=== PATIENT | female | born 1970 | race Hispanic/Latino ===

== ENCOUNTER 2017-04-25 17:41 | Emergency (ER) | payer MEDICAID ==
[2017-04-25] MEDS ORDERED: ASPIRIN PO ONE (18:21)
[2017-04-25 18:46] LABS: Basophils # (Auto) 0.1 K/mm3 (0.0-0.1); Basophils % (Auto) 1.3 % (0.0-1.8); Eosinophils # (Auto) 0.6 K/mm3 (0.0-0.4); Eosinophils % (Auto) 6.1 % (0.0-4.3); Hematocrit 40.5 % (30.3-42.9); Hemoglobin 13.7 gm/dl (10.1-14.3); Lymphocytes % (Auto) 31.3 % (13.4-35.0); Mean Corpuscular HGB Conc 34 % (30-34); Mean Corpuscular Hemoglobin 31 pg (28-32); Mean Corpuscular Volume 90 fl (79-97); Monocytes # (Auto) 0.9 K/mm3 (0.0-0.8); Monocytes % (Auto) 9.1 % (0.0-7.3); Platelet Count 331 K/mm3 (140-440); Red Blood Count 4.51 M/mm3 (3.65-5.03); Red Cell Distribution Width 13.1 % (13.2-15.2)
[2017-04-25 18:56] LABS: BUN/Creatinine Ratio 13; Blood Urea Nitrogen 10 mg/dL (7-17); Calcium 9.5 mg/dL (8.4-10.2); Hemolysis Index 9
[2017-04-25 22:26] VITALS: BP 120/76
[2017-04-25] MEDS ORDERED: TORADOL IV ONE (22:27)
[2017-04-25] MEDS ORDERED: SUBLIMAZE IV ONE ×2 (22:27→23:00)
--- NOTE | 2017-04-25 22:32 | Emergency Department Report ---
HPI - General Chief Complaint: Chest Pain Time Seen by Provider: 04/25/17 22:09 - HPI HPI: The patient is a 46-year-old female presents for evaluation of chest pain. The patient reports constant chest pain since 1 PM earlier today, greater than 8 hours prior to my evaluation. She states that his chest pain is been midsternal in location, sharp and tightness in quality, 9/10 in severity, and is exacerbated with movement. The patient denies fever, neck pain, parasthesias , dyspnea, cough, hemoptysis, palpitations, dizziness, syncope, unilateral leg swelling, calf muscle pain. Patient also denies cocaine or other stimulant use , history of GA or stent placement. ED Past Medical Hx - Past Medical History Previous Medical History?: Yes Additional medical history: Blood clotting disorder - Surgical History Past Surgical History?: Yes Hx Open Heart Surgery: Yes ("remove blood clot, and mitral valve replacement") Additional Surgical History: R. arm surgery to remove blood clot - Social History Smoking Status: Never Smoker - Medications Home Medications: Home Medications Medication Instructions Recorded Confirmed Last Taken Type Cyclobenzaprine HCl [Flexeril 5 MG 5 mg PO Q8HR PRN #10 tab 04/26/17 Unknown Rx TAB] Famotidine [Pepcid] 20 mg PO BID #20 tablet 04/26/17 Unknown Rx ED Review of Systems ROS: Stated complaint: CP/NUMBNESS ON LEFT SIDE Other details as noted in HPI Constitutional: denies: fever ENT: denies: throat or neck pain Respiratory: denies: cough, shortness of breath Cardiovascular: reports chest pain Endocrine: denies unexplained weight loss or gain Gastrointestinal: denies: abdominal pain, nausea Genitourinary: denies: dysuria Musculoskeletal: denies: leg swelling Skin: denies: rash Neurological: denies: headache Hematological/Lymphatic: denies: easy bleeding or easy bruising Psych: denies sadness or hopelessness Physical Exam - Physical Exam Vital Signs: Vital Signs 04/25/17 04/25/17 18:03 22:25 Temperature 98.1 F 98.6 F Pulse Rate 74 63 Respiratory 20 16 Rate Blood Pressure 144/97 Blood Pressure 120/76 [Left] O2 Sat by Pulse 97 96 Oximetry Physical Exam: General: well-nourished, well-developed, no acute distress Head: Normocephalic, atraumatic Eyes: normal sclera ENT: Mucous membranes are pink and moist Neck: trachea midline, neck supple, No neck stiffness, no cervical adenopathy Respiratory: Breath sounds equal bilaterally, no wheezing, rales, or rhonchi Cardio: S1 and S2 present, no murmurs, rubs, gallops, capillary refill is brisk Abdomen: Normoactive bowel sounds, soft abdomen, no rigidity, no guarding or rebound tenderness Musc: No pitting edema Skin: No rash Neuro: no facial drooping, normal speech Psych: Normal affect ED Course Vital Signs 04/25/17 04/25/17 18:03 22:25 Temperature 98.1 F 98.6 F Pulse Rate 74 63 Respiratory 20 16 Rate Blood Pressure 144/97 Blood Pressure 120/76 [Left] O2 Sat by Pulse 97 96 Oximetry ED Medical Decision Making - Lab Data Result diagrams: 04/25/17 18:24 04/25/17 18:24 - Medical Decision Making The patient was seen and examined by myself. The patient is placed on a asbestos microscopist and continuous pulse ox. On initial evaluation, the patient was found to be in no distress. EKG was negative for findings suggestive of acute cardiac infarct. Labs and imaging are obtained. The patient given IV pain medicine. Chest x-ray is negative for pneumothorax, focal consolidation, pulmonary vascular congestion, pleural effusion, or other obvious acute cardiopulmonary disease process. Lab results were non-concerning including levels of troponin, WBC, hemoglobin, hematocrit, electrolytes, renal function. CTA of the chest is negative for pulmonary embolism, aortic dissection, pericardial disease, or other acute emergent intrathoracic disease process. The patient was reevaluated and reported that their symptoms were markedly improved. As the patient has a ONUR risk score less than 2, and a well's score less than 2, the patient is at low risk of ACS or pulmonary emboli etiology of their symptoms. The patient is stable for discharge with outpatient follow-up. The patient is given follow-up and return instructions. The patient expressed understanding and agreed with the plan. The patient is discharged in stable condition. Critical care attestation.: If time is entered above; I have spent that time in minutes in the direct care of this critically ill patient, excluding procedure time. ED Disposition Clinical Impression: Acute chest pain Disposition: DC-01 TO HOME OR SELFCARE Is pt being admited?: No Does the pt Need Aspirin: No Condition: Stable Instructions: Chest Pain (ED), Costochondritis (ED) Prescriptions: Cyclobenzaprine HCl [Flexeril 5 MG TAB] 5 mg PO Q8HR PRN #10 tab PRN Reason: Pain Famotidine [Pepcid] 20 mg PO BID #20 tablet Referrals: SHAJI CUNNINGHAM MD [Primary Care Provider] - 3-5 Days Time of Disposition: 00:52
[2017-04-25] MEDS ORDERED: ZOFRAN IV ONE (23:19)
--- NOTE | 2017-04-25 23:45 | XRay Report ---
FINAL REPORT PROCEDURE: XR CHEST ROUTINE 2V TECHNIQUE: PA and lateral chest radiographs were obtained. CPT 02305 HISTORY: dyspnea COMPARISON: No prior studies are available for comparison. FINDINGS: Heart: Normal. Mediastinum/Vessels: Normal. Lungs/Pleural space: Normal. Bony thorax: No acute osseous abnormality. Other: IMPRESSION: Normal examination.
--- NOTE | 2017-04-26 00:29 | Cat Scan Report ---
FINAL REPORT PROCEDURE: CT ANGIO CHEST TECHNIQUE: Computerized axial tomographic angiography of the chest and pulmonary arteries was performed after the IV injection of iodinated nonionic contrast. The image data was postprocessed using maximum intensity projection (MIP) and 2-dimensional multiplanar reformatted (MPR) techniques. The examination is specifically tailored to the evaluation of the pulmonary arteries per clinical request. HISTORY: Short of breath 786.09, chest pain 786.50, chest pain COMPARISON: No prior studies are available for comparison. FINDINGS: Heart and pericardium: Normal. Thoracic aorta: Thoracic aorta is normal in caliber. There is no aneurysm or dissection.. Pulmonary vasculature: Normal. No pulmonary emboli. Lymph nodes: No enlarged thoracic lymph nodes. Lungs: Normal. Pleural space: No effusion, thickening, or pneumothorax. Musculoskeletal structures: No significant abnormality. Upper abdominal structures: No significant abnormality. IMPRESSION: Normal Examination.
== END 2017-04-26 01:12 | disposition home or self-care (01) ==
LOC: ED 17:41
DX: R07.89 Other chest pain (principal)
CPT/HCPCS: 36415; 71046; 71275; 80048; 84484; 85025; 93005; 93010; 96374; 96375; 99285; J1885; J3010; Q9967

== ENCOUNTER 2018-08-02 16:55 | Emergency (ER) | payer MEDICARE ==
--- NOTE | 2018-08-02 17:53 | Emergency Department Report ---
Blank Doc - Documentation Documentation: pt states that her blood sugar was 205 pt has nausea PMHx of DM +V/D states that she has a foul odor to her urine PMHx HTN, factor V +smoker non drinker no drug use
[2018-08-02 18:57] LABS: Color,Urine Yellow (Yellow)
[2018-08-02 18:58] LABS: Bacteria,Urine 1+ /HPF (Negative); Bilirubin,Urine NEG (Negative); Blood,Urine NEG (Negative); Mucus,Urine FEW /HPF; Protein,Urine <15 mg/dL mg/dL (Negative); Urobilinogen,Urine < 2.0 mg/dL (<2.0)
[2018-08-02 19:03] LABS: Basophils # (Auto) 0.1 K/mm3 (0.0-0.1); Basophils % (Auto) 0.6 % (0.0-1.8); Eosinophils # (Auto) 0.3 K/mm3 (0.0-0.4); Eosinophils % (Auto) 3.2 % (0.0-4.3); Hematocrit 39.5 % (30.3-42.9); Hemoglobin 13.8 gm/dl (10.1-14.3); Lymphocytes # (Auto) 3.2 K/mm3 (1.2-5.4); Lymphocytes % (Auto) 35.3 % (13.4-35.0); Mean Corpuscular HGB Conc 35 % (30-34); Mean Corpuscular Volume 92 fl (79-97); Monocytes # (Auto) 0.8 K/mm3 (0.0-0.8); Platelet Count 273 K/mm3 (140-440)
[2018-08-02 19:20] LABS: BUN/Creatinine Ratio 13; Blood Urea Nitrogen 9 mg/dL (7-17); Calcium 9.2 mg/dL (8.4-10.2); Hemolysis Index 3
[2018-08-02] MEDS ORDERED: ZOFRAN IV ONE (19:49)
[2018-08-02] MEDS ORDERED: KCL 10MEQ/100ML 10 MEQ/100 ML BAG IV ONE ×2 (19:49→19:55)
[2018-08-02] MEDS ORDERED: K-DUR PO ONE (19:49)
[2018-08-02] MEDS ORDERED: NACL 0.9% 500 ML 500 ML IV ONE (19:49)
--- NOTE | 2018-08-02 21:03 | Emergency Department Report ---
ED General Adult HPI - General Chief complaint: Hyperglycemia Stated complaint: DKA/SUGAR HIGH Time Seen by Provider: 08/02/18 17:51 Source: patient Mode of arrival: Ambulatory Limitations: No Limitations - History of Present Illness Initial comments: pt states that her blood sugar was 205 pt has nausea PMHx of DM +V/D states that she has a foul odor to her urine , tp denies cp no sob fever or chills, pt does endorse dizziness , lightheadedness with n/v , pt also endorses polypharmacy Onset/Timin -: days(s), week(s) Location: head, abdomen Radiation: non-radiation Severity scale (0 -10): 7 Quality: other (dizziness nausea) Consistency: constant Improves with: none Worsens with: eating, movement Associated Symptoms: malaise, nausea/vomiting Treatments Prior to Arrival: none - Related Data Previous Rx's Medication Instructions Recorded Last Taken Type Cyclobenzaprine HCl [Flexeril 5 MG 5 mg PO Q8HR PRN #10 tab 04/26/17 Unknown Rx TAB] Famotidine [Pepcid] 20 mg PO BID #20 tablet 04/26/17 Unknown Rx Ondansetron [Zofran Odt] 4 mg PO Q8HR PRN #12 tab.rapdis 08/03/18 Unknown Rx Potassium Chloride [K-Dur] 40 meq PO BID 3 Days #12 tab 08/03/18 Unknown Rx Allergies Allergy/AdvReac Type Severity Reaction Status Date / Time acetaminophen Allergy Unknown Verified 08/02/18 16:58 [From Darvocet-N] hydrocodone [From Vicodin] Allergy Unknown Verified 08/02/18 16:58 propoxyphene Allergy Unknown Verified 08/02/18 16:58 [From Darvocet-N] warfarin [From Coumadin] Allergy Unknown Verified 08/02/18 16:58 ED Review of Systems ROS: Stated complaint: DKA/SUGAR HIGH Other details as noted in HPI Constitutional: malaise. denies: chills, fever Eyes: denies: eye pain, eye discharge, vision change ENT: denies: ear pain, throat pain Respiratory: denies: cough, shortness of breath, wheezing Cardiovascular: denies: chest pain, palpitations Endocrine: no symptoms reported Gastrointestinal: abdominal pain, nausea, vomiting. denies: diarrhea, constipation Genitourinary: denies: urgency, dysuria, discharge Musculoskeletal: denies: back pain, joint swelling, arthralgia Skin: denies: rash, lesions Neurological: weakness. denies: headache, numbness, paresthesias, confusion, abnormal gait, vertigo Psychiatric: anxiety. denies: depression Hematological/Lymphatic: denies: easy bleeding, easy bruising ED Past Medical Hx - Past Medical History Hx CVA: Yes Hx Diabetes: Yes Hx Psychiatric Treatment: Yes (BiPolar) Additional medical history: Blood clotting disorder - Surgical History Hx Open Heart Surgery: Yes ("remove blood clot, and mitral valve replacement") Additional Surgical History: R. arm surgery to remove blood clot - Social History Smoking Status: Current Every Day Smoker Substance Use Type: None - Medications Home Medications: Home Medications Medication Instructions Recorded Confirmed Last Taken Type Cyclobenzaprine HCl [Flexeril 5 MG 5 mg PO Q8HR PRN #10 tab 04/26/17 Unknown Rx TAB] Famotidine [Pepcid] 20 mg PO BID #20 tablet 04/26/17 Unknown Rx Ondansetron [Zofran Odt] 4 mg PO Q8HR PRN #12 tab.rapdis 08/03/18 Unknown Rx Potassium Chloride [K-Dur] 40 meq PO BID 3 Days #12 tab 08/03/18 Unknown Rx ED Physical Exam - General Limitations: No Limitations General appearance: alert, in no apparent distress - Head Head exam: Present: atraumatic, normocephalic - Eye Eye exam: Present: normal appearance, PERRL, EOMI Pupils: Present: normal accommodation - ENT ENT exam: Present: mucous membranes moist - Neck Neck exam: Present: normal inspection, full ROM. Absent: tenderness, lymphadenopathy - Respiratory Respiratory exam: Present: normal lung sounds bilaterally. Absent: respiratory distress, wheezes, stridor, chest wall tenderness - Cardiovascular Cardiovascular Exam: Present: regular rate, normal rhythm, normal heart sounds. Absent: systolic murmur, diastolic murmur, rubs, gallop - GI/Abdominal GI/Abdominal exam: Present: soft, normal bowel sounds. Absent: distended, tenderness, guarding, rebound, rigid, bruit, hernia - Rectal Rectal exam: Present: deferred - Extremities Exam Extremities exam: Present: normal inspection, full ROM, normal capillary refill. Absent: tenderness, pedal edema, joint swelling - Back Exam Back exam: Present: normal inspection, full ROM. Absent: tenderness, CVA tenderness (R), CVA tenderness (L), muscle spasm, rash noted - Neurological Exam Neurological exam: Present: alert, oriented X3, CN II-XII intact, normal gait, reflexes normal. Absent: motor sensory deficit - Expanded Neurological Exam Expanded Patient oriented to: Present: person, place, time Speech: Present: fluid speech Cranial nerves: EOM's Intact: Normal, Gag Reflex: Normal, Tongue Deviation: Normal, Nystagmus: Normal, Facial Sensation: Normal Cerebellar function: Finger to Nose: Normal, Heel to Beal: Normal, Romberg: Normal Upper motor neuron: Fitz Neglect: Normal, Pronator Drift: Normal, Sensory Ext inction: Normal Motor strength exam: RUE: 5, LUE: 5, RLE: 5, LLE: 5 Best Eye Response (Kathryn): (4) open spontaneously Best Motor Response (Kathryn): (6) obeys commands Best Verbal Response (Gina): (5) oriented Gina Total: 15 - Psychiatric Psychiatric exam: Present: normal affect, normal mood, anxious - Skin Skin exam: Present: warm, dry, intact, normal color. Absent: rash ED Course Vital Signs 08/02/18 08/02/18 17:54 21:00 Temperature 98.5 F 98.6 F Pulse Rate 64 57 L Respiratory 18 20 Rate Blood Pressure 136/81 124/67 [Right] O2 Sat by Pulse 95 99 Oximetry ED Medical Decision Making - Lab Data Result diagrams: 08/02/18 18:52 08/02/18 23:03 Labs 08/02/18 08/02/18 08/02/18 17:58 18:39 18:52 WBC 9.1 RBC 4.30 Hgb 13.8 Hct 39.5 MCV 92 MCH 32 MCHC 35 H RDW 13.0 L Plt Count 273 Lymph % (Auto) 35.3 H [place] % (Auto) 9.0 H Eos % (Auto) 3.2 Baso % (Auto) 0.6 Lymph # 3.2 [place] # 0.8 Eos # 0.3 Baso # 0.1 Seg Neutrophils % 51.9 Seg Neutrophils # 4.7 Sodium Potassium Chloride Carbon Dioxide Anion Gap BUN Creatinine Estimated GFR BUN/Creatinine Ratio Glucose POC Glucose 153 H Calcium Troponin T Urine Color Yellow Urine Turbidity Clear Urine pH 5.0 Ur Specific [place] 1.017 Urine Protein <15 mg/dl Urine Glucose (UA) Neg Urine Ketones Neg Urine Blood Neg Urine Nitrite Neg Urine Bilirubin Neg Urine Urobilinogen < 2.0 Ur Leukocyte Esterase Neg Urine WBC (Auto) 1.0 Urine RBC (Auto) 1.0 U Epithel Cells (Auto) 2.0 Urine Bacteria (Auto) 1+ Urine Mucus Few 08/02/18 08/02/18 08/02/18 18:52 20:07 23:03 WBC RBC Hgb Hct MCV MCH MCHC RDW Plt Count Lymph % (Auto) [place] % (Auto) Eos % (Auto) Baso % (Auto) Lymph # [place] # Eos # Baso # Seg Neutrophils % Seg Neutrophils # Sodium 139 Potassium 2.8 L* 3.0 L Chloride 95.5 L Carbon Dioxide 28 Anion Gap 18 BUN 9 Creatinine 0.7 Estimated GFR > 60 BUN/Creatinine Ratio 13 Glucose 146 H POC Glucose Calcium 9.2 Troponin T < 0.010 Urine Color Urine Turbidity Urine pH Ur Specific [place] Urine Protein Urine Glucose (UA) Urine Ketones Urine Blood Urine Nitrite Urine Bilirubin Urine Urobilinogen Ur Leukocyte Esterase Urine WBC (Auto) Urine RBC (Auto) U Epithel Cells (Auto) Urine Bacteria (Auto) Urine Mucus - EKG Data EKG shows normal: sinus rhythm, axis, intervals, QRS complexes Rate: normal - EKG Data When compared to previous EKG there are: no significant change Interpretation: normal EKG, nonspecific ST-T wave eldon Ekg inter by ed attending NSR ST Elevated MT 08/03/18 00:23 08/03/18 00:24 - Radiology Data Radiology results: report reviewed, image reviewed - Medical Decision Making Potassium is trending dose and one IV dose patient will complete of 20 mEq IV and 40 meq, po x 2 doses, by mouth patient is now tolerating by mouth intake without nausea vomiting patient will be DC'd home in stable condition at this time EKG is normal sinus rhythm this is M atorvastatin gait with no dizziness or lightheadedness no chest pain no shortness of breath no diaphoresis no back pain no chest pain , pt dc'c to home with family member via pov pt will increase daily potassium x 3 days and continue to hydrate as directed, Critical care attestation.: If time is entered above; I have spent that time in minutes in the direct care of this critically ill patient, excluding procedure time. ED Disposition Clinical Impression: Hypokalemia Nausea and vomiting Qualifiers: Vomiting type: unspecified Vomiting Intractability: non-intractable Qualified Code(s): R11.2 - Nausea with vomiting, unspecified Disposition: - TO HOME OR SELFCARE Is pt being admited?: No Does the pt Need Aspirin: No Condition: Stable Instructions: Acute Nausea and Vomiting (ED), Hypokalemia (ED) Prescriptions: Potassium Chloride [K-Dur] 40 meq PO BID 3 Days #12 tab Ondansetron [Zofran Odt] 4 mg PO Q8HR PRN #12 tab.rapdis PRN Reason: Nausea And Vomiting Referrals: BRANDON KIMBLE MD [Primary Care Provider] - 2-3 Days Forms: Work/School Release Form(ED) Time of Disposition: 00:30
[2018-08-02 22:09] VITALS: BP 124/67
[2018-08-03] MEDS ORDERED: K-DUR PO ONE (00:22)
== END 2018-08-03 00:50 | disposition home or self-care (01) ==
LOC: ED 16:55
DX: E87.6 Hypokalemia (principal); R11.2 Nausea with vomiting, unspecified; E11.9 Type 2 diabetes mellitus without complications; F17.200 Nicotine dependence, unspecified, uncomplicated; Z88.8 Allergy status to other drugs, medicaments and biological substances; Z88.5 Allergy status to narcotic agent
CPT/HCPCS: 36415; 80048; 81001; 82962; 84132; 84484; 85025; 93005; 93010; 96365; 96366; 96375; 99284; J2405; J3480; J7040

== ENCOUNTER 2019-03-16 12:57 | Emergency (ER) | payer MEDICARE ==
[2019-03-16] MEDS ORDERED: IPRATROPIUM/ALBUTEROL SULFATE 3 ML AMPUL.NEB IH ONE (15:54)
--- NOTE | 2019-03-16 15:54 | Event Note ---
ED Screening Note ED Screening Note: friday having sore throat productive cough no fever no sick contacts PMHx DVT, DM on xaretlo allergy: coumadin, valium PSHx hysterectomy This initial assessment/diagnostic orders/clinical plan/treatment(s) is/are subject to change based on patients health status, clinical progression and re-assessment by fellow clinical providers in the ED. Further treatment and workup at subsequent clinical providers discretion. Patient/guardian urged not to elope from the ED as their condition may be serious if not clinically assessed and managed. Initial orders include: CXR, duo neb
--- NOTE | 2019-03-16 17:00 | XRay Report ---
CHEST 2 VIEWS INDICATION / CLINICAL INFORMATION: productive cough. COMPARISON: 2 views of the chest from 04/25/2017. FINDINGS: SUPPORT DEVICES: None. HEART / MEDIASTINUM: Sternotomy changes are again seen. The heart is normal in size. LUNGS / PLEURA: No significant pulmonary or pleural abnormality. No pneumothorax. ADDITIONAL FINDINGS: No significant additional findings. IMPRESSION: 1. No acute abnormality of the chest. Signer Name: James Case MD Signed: 03/16/2019 4:56 PM Workstation Name: [id number]
[2019-03-16] MEDS ORDERED: predniSONE 20 MG TAB PO ONE (17:03)
--- NOTE | 2019-03-16 17:08 | Emergency Department Report ---
Minor Respiratory - HPI Chief Complaint: Sore Throat Stated Complaint: SORE THROAT Time Seen by Provider: 03/16/19 15:50 Duration: 3 Days Pain Location: Chest Severity: mild Minor Respiratory: Yes Sore Throat, Yes Able to Tolerate Fluids, Yes Cough, No Rhinorrhea, No Ear Pain, No Sick Contacts, No Hemoptysis, No Chest Pain, No Shortness of Breath, No Fever Other History: 48 YO FEMALE COMES TO ER WITH SORE THROAT AND COUGH FOR 3 DAYS. NO FEVER OR CHILLS. SHE IS A CURRENT EVERY DAY SMOKER. NO CHEST PAIN. AMBULATORY TO ER. RX. ASA. COREG. MIRT? LISINOPRIL. XARELTO. KLONOPIN. HAS LOCAL PCP ED Review of Systems ROS: Stated complaint: SORE THROAT Other details as noted in HPI Comment: All other systems reviewed and negative ED Past Medical Hx - Past Medical History Previous Medical History?: Yes Hx CVA: Yes Hx Diabetes: Yes Hx Psychiatric Treatment: Yes (BiPolar) Additional medical history: Blood clotting disorder - Surgical History Past Surgical History?: Yes Hx Open Heart Surgery: Yes ("remove blood clot, and mitral valve replacement") Additional Surgical History: R. arm surgery to remove blood clot - Family History Family history: no significant - Social History Smoking Status: Current Every Day Smoker Substance Use Type: None - Medications Home Medications: Home Medications Medication Instructions Recorded Confirmed Last Taken Type ALBUTEROL Inhaler (OR & NICU) 2 puff IH QID PRN #1 inhalation 03/16/19 Unknown Rx [ProAir HFA Inhaler] Azithromycin [Zithromax Z-CARLOS] 250 mg PO DAILY #6 tablet 03/16/19 Unknown Rx methylPREDNISolone [Medrol 4MG 4 mg PO FS #1 tab.ds.pk 03/16/19 Unknown Rx DOSEPAK (21 tabs)] Minor Respiratory Exam - Exam General: Vital signs noted. No distress. Alert and acting appropriately. HEENT: Yes Moist Mucous Membranes, No Pharyngeal Erythema, No Pharyngeal Exudates, No Rhinorrhea, No Conjuctival Injection, No Frontal Tenderness, No Maxillary Tenderness Ear: Neither TM Bulge, Neither TM Erythema, Neither EAC Pain, Neither EAC Discharge Neck: Yes Supple, No Adenopathy Lungs: Yes Good Air Exchange, Yes Wheezes, No Ronchi, No Stridor, No Cough, No Labored Respirations, No Retractions, No Use of Accessory Muscles, No Other Abnormal Lung Sounds Heart: Yes Regular, No Murmur Abdomen: Yes Normal Bowel Sounds, No Tenderness, No Peritoneal Signs Skin: No Rash, No Edema Neurologic: Alert and oriented, no deficits. Musculoskeletal: Unremarkable. ED Medical Decision Making - Radiology Data Radiology results: report reviewed, image reviewed - Medical Decision Making Vital Signs 03/16/19 17:02 Pulse Rate 63 Respiratory 20 Rate O2 Sat by Pulse 95 Oximetry VSS 130/70, HR 88, RR 16, [id number] RA, TEMP 98 ON EXAM RN ASKED TO DOCUMENT DUONEB XRAY NOTED PT EDUCATED ABOUT SMOKING SHE DENIES COPD HX I SUSPECT THERE IS UNDERLYING COPD MEDICATED IN ER DC HOME WITH PCP FOLLOW UP IN 48 HOURS. - Differential Diagnosis URI/VIRAL/PNA/COPD Critical care attestation.: If time is entered above; I have spent that time in minutes in the direct care of this critically ill patient, excluding procedure time. ED Disposition Clinical Impression: URTI (acute upper respiratory infection), Bronchitis, Cigarette smoker Disposition: DC- TO HOME OR SELFCARE Is pt being admited?: No Does the pt Need Aspirin: No Condition: Stable Instructions: Acute Bronchitis (ED) Additional Instructions: AVOID SMOKING MEDS ORDERED TODAY FOLLOW UP WITH PCP IN 48 HOURS TO BE SURE YOU ARE GETTING BETTER--- ESPECIALLY GIVEN YOUR CARDIAC HISTORY HYDRATE WELL WITH WATER DIET AND ACTIVITY TOLERATED Prescriptions: methylPREDNISolone [Medrol 4MG DOSEPAK (21 tabs)] 4 mg PO FS #1 tab.ds.pk ALBUTEROL Inhaler (OR & NICU) [ProAir HFA Inhaler] 2 puff IH QID PRN #1 inhalation PRN Reason: Shortness Of Breath Azithromycin [Zithromax Z-CARLOS] 250 mg PO DAILY #6 tablet Referrals: MADI JESSICA MD [Staff Physician] - 3-5 Days Time of Disposition: 17:05
== END 2019-03-16 17:20 | disposition home or self-care (01) ==
LOC: ED 12:57
DX: J06.9 Acute upper respiratory infection, unspecified (principal); J40 Bronchitis, not specified as acute or chronic; F17.210 Nicotine dependence, cigarettes, uncomplicated; E11.9 Type 2 diabetes mellitus without complications; F31.9 Bipolar disorder, unspecified; Z98.890 Other specified postprocedural states; Z79.899 Other long term (current) drug therapy; Z88.4 Allergy status to anesthetic agent; Z88.8 Allergy status to other drugs, medicaments and biological substances; Z86.73 Personal history of transient ischemic attack (TIA), and cerebral infarction without residual deficits
CPT/HCPCS: 71046; 94640; 99283; J7512

== ENCOUNTER 2019-04-28 20:01 | Emergency (ER) | payer MEDICARE ==
--- NOTE | 2019-04-28 21:22 | Emergency Department Report ---
Blank Doc - Documentation Documentation: 48-year-old female that presents with uncontrolled glucose and left arm pain w ith hx of blood clots. This initial assessment/diagnostic orders/clinical plan/treatment(s) is/are subject to change based on patient's health status, clinical progression and re- assessment by fellow clinical providers in the ED. Further treatment and workup at subsequent clinical providers discretion. Patient/guardians urged not to elope from the ED as their condition may be serious if not clinically assessed and managed. Initial orders include: 1- Patient sent to MAIN ED for further evaluation and treatment 2- labs 3- UA 4- US doppler
[2019-04-28 21:38] LABS: Basophils # (Auto) 0.1 K/mm3 (0.0-0.1); Basophils % (Auto) 0.9 % (0.0-1.8); Eosinophils # (Auto) 0.3 K/mm3 (0.0-0.4); Eosinophils % (Auto) 2.7 % (0.0-4.3); Hemoglobin 14.3 gm/dl (10.1-14.3); Lymphocytes # (Auto) 3.4 K/mm3 (1.2-5.4); Lymphocytes % (Auto) 35.7 % (13.4-35.0); Mean Corpuscular HGB Conc 34 % (30-34); Mean Corpuscular Volume 91 fl (79-97); Monocytes # (Auto) 0.7 K/mm3 (0.0-0.8); Monocytes % (Auto) 7.8 % (0.0-7.3); Platelet Count 267 K/mm3 (140-440); Red Blood Count 4.61 M/mm3 (3.65-5.03)
[2019-04-28 21:59] LABS: Alanine Aminotransferase 38 units/L (7-56); BUN/Creatinine Ratio 18; Blood Urea Nitrogen 11 mg/dL (7-17); Calcium 9.4 mg/dL (8.4-10.2); Hemolysis Index 13
[2019-04-29] MEDS ORDERED: POTASSIUM CHLORIDE ER 20 MEQ TAB PO ONE (01:19)
[2019-04-29] MEDS ORDERED: SODIUM CHLORIDE 0.9% 1000 ML 1,000 ML IV ONE (01:50)
[2019-04-29] MEDS ORDERED: MAGNESIUM OXIDE 400 MG TAB PO ONE (01:55)
--- NOTE | 2019-04-29 01:56 | Emergency Department Report ---
ED General Adult HPI - General Chief complaint: Hyperglycemia Stated complaint: DIABETIC/BLOOD CLOT LT ARM Time Seen by Provider: 04/28/19 21:20 Source: patient, RN notes reviewed, old records reviewed Mode of arrival: Ambulatory Limitations: No Limitations - History of Present Illness Initial comments: Primary care doctor: Dr. Brandon Kimble The patient is a pleasant 48-year-old female. The patient is not known to myself previously. She reports that she moved here from [place] 2 years ago. She has a history of diabetes and she reports that she takes metformin, and insulin, also has chronic hypokalemia, and takes potassium supplementation. She reports a history of chronic hypercoagulable state, she is not quite sure which particular entity she has, and she reports that she is on chronic systemic anticoagulation, Xarelto. She reports a history of blood clots in the past. She presents with 2 complaints Her first complaint is concerned about potential for hypoglycemia. She reports that her sugar was high yesterday evening at 6:00 PM, she took 20 units of insulin, and came to the emergency room for evaluation of her glycemic monitoring. She denies headache, neck pain, chest pain, abdominal pain, shortness of breath, hematemesis, bright red blood per rectum, and urinary symptoms. She thinks her sugar may have been as high as 280. She denies dietary indiscretions. Her next complaint is left forearm subjective swelling that is painless and nontraumatic. This is present for 2 days. It is in the distal volar proximal forearm. It does not radiate anywhere. Does not have exacerbating or relieving factors. There is no chest pain, leg pain, leg swelling, she endorses compliance with this systemic anticoagulation, and she de nies recent trips, recent surgeries and hospitalizations. She does not have a local international account representative. -: days(s) Location: left, upper extremity Radiation: other Quality: other Consistency: other Improves with: other Worsens with: other Associated Symptoms: other - Related Data Previous Rx's Medication Instructions Recorded Last Taken Type Albuterol INH(or & Nicu Only) 2 puff IH QID PRN #1 inhalation 03/16/19 Unknown Rx [ProAir HFA Inhaler] Potassium Chloride [K-Dur] 20 meq PO QDAY #20 tablet 04/10/19 Unknown Rx glipiZIDE [Glucotrol] 5 mg PO QDAY #15 tablet 04/10/19 Unknown Rx Magnesium Oxide 400 mg PO QDAY #30 tablet 04/29/19 Unknown Rx Potassium Chloride [K-Dur] 20 meq PO BID #60 tab 04/29/19 Unknown Rx Allergies Allergy/AdvReac Type Severity Reaction Status Date / Time acetaminophen Allergy Unknown Verified 08/02/18 16:58 [From Darvocet-N] hydrocodone [From Vicodin] Allergy Unknown Verified 08/02/18 16:58 propoxyphene Allergy Unknown Verified 08/02/18 16:58 [From Darvocet-N] warfarin [From Coumadin] Allergy Unknown Verified 08/02/18 16:58 ED Review of Systems ROS: Stated complaint: DIABETIC/BLOOD CLOT LT ARM Other details as noted in HPI Constitutional: denies: fever Eyes: denies: eye discharge ENT: denies: congestion Respiratory: denies: cough, wheezing Cardiovascular: denies: chest pain, syncope Gastrointestinal: denies: abdominal pain, hematemesis, melena, hematochezia Genitourinary: denies: dysuria Musculoskeletal: myalgia, other Skin: denies: lesions Hematological/Lymphatic: denies: easy bleeding ED Past Medical Hx - Past Medical History Hx CVA: Yes (EYE IMPAIRMENT) Hx Diabetes: Yes Hx Psychiatric Treatment: Yes (BiPolar) Additional medical history: Blood clotting disorder - Surgical History Hx Open Heart Surgery: Yes ("remove blood clot, and mitral valve replacement") Additional Surgical History: R. arm surgery to remove blood clot - Social History Smoking Status: Current Every Day Smoker Substance Use Type: None - Medications Home Medications: Home Medications Medication Instructions Recorded Confirmed Last Taken Type Albuterol INH(or & Nicu Only) 2 puff IH QID PRN #1 inhalation 03/16/19 Unknown Rx [ProAir HFA Inhaler] Potassium Chloride [K-Dur] 20 meq PO QDAY #20 tablet 04/10/19 Unknown Rx glipiZIDE [Glucotrol] 5 mg PO QDAY #15 tablet 04/10/19 Unknown Rx Magnesium Oxide 400 mg PO QDAY #30 tablet 04/29/19 Unknown Rx Potassium Chloride [K-Dur] 20 meq PO BID #60 tab 04/29/19 Unknown Rx ED Physical Exam - General Limitations: No Limitations General appearance: alert, in no apparent distress - Head Head exam: Present: atraumatic, normocephalic - Eye Eye exam: Present: normal appearance, EOMI. Absent: nystagmus - ENT ENT exam: Present: normal exam, normal orophraynx, mucous membranes moist, normal external ear exam - Neck Neck exam: Present: normal inspection, full ROM. Absent: tenderness, meningismus - Respiratory Respiratory exam: Present: normal lung sounds bilaterally. Absent: respiratory distress - Cardiovascular Cardiovascular Exam: Present: regular rate, normal rhythm, normal heart sounds. Absent: bradycardia, tachycardia, irregular rhythm, systolic murmur, diastolic murmur, rubs, gallop - GI/Abdominal GI/Abdominal exam: Present: soft. Absent: distended, tenderness, guarding, rebound, rigid, pulsatile mass - Extremities Exam Extremities exam: Present: normal inspection, full ROM, other (2+ pulses noted in the bilateral upper and lower extremities. There is no palpable cord. negative Homans sign. Muscular compartments are soft. The pelvis is stable.). Absent: pedal edema, calf tenderness - Back Exam Back exam: Present: normal inspection, full ROM. Absent: tenderness, CVA tenderness (R), CVA tenderness (L), paraspinal tenderness, vertebral tenderness - Neurological Exam Neurological exam: Present: alert, normal gait, other (There is no facial droop. The tongue is midline. Extraocular movements are intact bilaterally. There is 5 out of 5 strength in bilateral upper and lower extremities. Sensation is intact to light touch bilateral upper and lower extremities. There is a normal gait.). Absent: motor sensory deficit - Psychiatric Psychiatric exam: Present: flat affect - Skin Skin exam: Present: warm, dry, intact, normal color. Absent: rash ED Course Vital Signs 04/28/19 20:40 Temperature 98.1 F Pulse Rate 69 Respiratory 14 Rate Blood Pressure 145/94 O2 Sat by Pulse 96 Oximetry ED Medical Decision Making - Lab Data Result diagrams: 04/28/19 21:24 04/28/19 21:24 Vital Signs 04/28/19 20:40 Temperature 98.1 F Pulse Rate 69 Respiratory 14 Rate Blood Pressure 145/94 O2 Sat by Pulse 96 Oximetry Lab Results 04/28/19 04/28/19 04/28/19 Range/Units 21:09 21:24 21:24 WBC 9.5 (4.5-11.0) K/mm3 RBC 4.61 (3.65-5.03) M/mm3 Hgb 14.3 (10.1-14.3) gm/dl Hct 42.0 (30.3-42.9) % MCV 91 (79-97) fl MCH 31 (28-32) pg MCHC 34 (30-34) % RDW 13.0 L (13.2-15.2) % Plt Count 267 (140-440) K/mm3 Lymph % (Auto) 35.7 H (13.4-35.0) % Anderson % (Auto) 7.8 H (0.0-7.3) % Eos % (Auto) 2.7 (0.0-4.3) % Baso % (Auto) 0.9 (0.0-1.8) % Lymph # 3.4 (1.2-5.4) K/mm3 Anderson # 0.7 (0.0-0.8) K/mm3 Eos # 0.3 (0.0-0.4) K/mm3 Baso # 0.1 (0.0-0.1) K/mm3 Seg Neutrophils % 52.9 (40.0-70.0) % Seg Neutrophils # 5.0 (1.8-7.7) K/mm3 Sodium 135 L (137-145) mmol/L Potassium 3.0 L (3.6-5.0) mmol/L Chloride 94.0 L (98-107) mmol/L Carbon Dioxide 20 L (22-30) mmol/L Anion Gap 24 mmol/L BUN 11 (7-17) mg/dL Creatinine 0.6 L (0.7-1.2) mg/dL Estimated GFR > 60 ml/min BUN/Creatinine Ratio 18 % Glucose 281 H (65-100) mg/dL POC Glucose 208 H (70-105) Calcium 9.4 (8.4-10.2) mg/dL Magnesium (1.7-2.3) mg/dL Total Bilirubin 0.20 (0.1-1.2) mg/dL AST 22 (5-40) units/L ALT 38 (7-56) units/L Alkaline Phosphatase 65 (35-129) units/L Total Creatine Kinase (30-135) units/L Total Protein 6.6 (6.3-8.2) g/dL Albumin 4.0 (3.9-5) g/dL Albumin/Globulin Ratio 1.5 % HCG, Qual (Negative) 04/28/19 04/28/19 Range/Units 21:24 21:24 WBC (4.5-11.0) K/mm3 RBC (3.65-5.03) M/mm3 Hgb (10.1-14.3) gm/dl Hct (30.3-42.9) % MCV (79-97) fl MCH (28-32) pg MCHC (30-34) % RDW (13.2-15.2) % Plt Count (140-440) K/mm3 Lymph % (Auto) (13.4-35.0) % Anderson % (Auto) (0.0-7.3) % Eos % (Auto) (0.0-4.3) % Baso % (Auto) (0.0-1.8) % Lymph # (1.2-5.4) K/mm3 Anderson # (0.0-0.8) K/mm3 Eos # (0.0-0.4) K/mm3 Baso # (0.0-0.1) K/mm3 Seg Neutrophils % (40.0-70.0) % Seg Neutrophils # (1.8-7.7) K/mm3 Sodium (137-145) mmol/L Potassium (3.6-5.0) mmol/L Chloride (98-107) mmol/L Carbon Dioxide (22-30) mmol/L Anion Gap mmol/L BUN (7-17) mg/dL Creatinine (0.7-1.2) mg/dL Estimated GFR ml/min BUN/Creatinine Ratio % Glucose (65-100) mg/dL POC Glucose (70-105) Calcium (8.4-10.2) mg/dL Magnesium 1.30 L (1.7-2.3) mg/dL Total Bilirubin (0.1-1.2) mg/dL AST (5-40) units/L ALT (7-56) units/L Alkaline Phosphatase (35-129) units/L Total Creatine Kinase 53 (30-135) units/L Total Protein (6.3-8.2) g/dL Albumin (3.9-5) g/dL Albumin/Globulin Ratio % HCG, Qual Negative (Negative) - Medical Decision Making Differential diagnosis, including but not limited to: Hyperglycemia, diabetes, left forearm sprain, strain, upper extremity DVT, incidental chronic electrolyte derangement Assessment and plan: 48-year-old female here for 2 issues Issue #1, glycemic monitoring after insulin administration. Patient is now 8 hours after she administered herself her insulin. She is afebrile with reassuring vital signs. Her laboratory parameters do not indicate that emergent administration of insulin is indicated. She does not appear to have an emergency endocrinologic condition at this time. She can continue outpatient diet, insulin and metformin and follow-up with her outpatient primary care doctor. She is found to be incidentally hypomagnesemic and hypokalemic, we will give her both potassium and magnesium supplementation, and discharged with potassium and magnesium supplementation Issue #2, concern for left forearm subjective swelling. She is afebrile with reassuring vital signs, there is no obvious swelling or deformity or asymmetry on her upper extremities or lower extremities, she does not have chest pain or shortness of breath, she is not tachycardic, tachypneic or hypoxic, and she endorses compliance with her systemic anticoagulation. Patient presents after hours, we do not have access to vascular lab for duplex ultrasound at this time. She can follow-up as an outpatient, or with her primary care doctor. She will also need to follow-up with an outpatient international account representative for her chronic hypercoagulable state. Discussed this with patient. Critical care attestation.: If time is entered above; I have spent that time in minutes in the direct care of this critically ill patient, excluding procedure time. ED Disposition Clinical Impression: History of hypercoagulable state, Hypokalemia, Hypomagnesemia, Left forearm pain, Hyperglycemia Disposition: DC-01 TO HOME OR SELFCARE Is pt being admited?: No Does the pt Need Aspirin: No Condition: Stable Additional Instructions: Please continue current outpatient medications. Please adhere to a diabetic appropriate diet. Take the magnesium and potassium supplementation as directed. Please follow-up with your primary care doctor within the next 7 to 10 days. Please follow-up with a international account representative within the next 4 to 6 weeks. Avoid consumption of Motrin, ibuprofen, Naprosyn, Aleve. Patient may alternate warm compresses and cool compresses as needed for left upper extremity pain and discomfort. Please contact the ultrasound department with the listed phone number to arrange outpatient upper extremity ultrasound to exclude blood clot in the arm, will follow-up closely with your outpatient primary care doctor to further coordinate. Please return to the emergency room right away with new, worsened or different symptoms, or symptoms not present on the initial emergency room evaluation. please call [phone], listen for the prompts and select option 1 to speak to our staff, Available Friday through Friday, 7 am to 5 pm PM to assist you. Make certain to bring the ultrasound requisition form with you. Referrals: CHRISTOS PUENTES MD [Staff Physician] - as needed KALYAN RANGEL MD [Staff Physician] - as needed BRANDON KIMBLE MD [Primary Care Provider] - 7-10 days
[2019-04-29 07:06] VITALS: BP 119/71
== END 2019-04-29 03:30 | disposition home or self-care (01) ==
LOC: ED 20:01
DX: E87.6 Hypokalemia (principal); E83.42 Hypomagnesemia; E11.65 Type 2 diabetes mellitus with hyperglycemia; M79.632 Pain in left forearm; F31.89 Other bipolar disorder; F17.200 Nicotine dependence, unspecified, uncomplicated; I25.2 Old myocardial infarction; Z79.899 Other long term (current) drug therapy; Z88.6 Allergy status to analgesic agent
CPT/HCPCS: 36415; 80053; 82550; 82962; 83735; 84703; 85025; 96360; 99283

== ENCOUNTER 2019-04-29 07:48 | Outpatient (CLI) | payer MEDICARE ==
--- NOTE | 2019-04-29 09:53 | Vascular Lab Report ---
LEFT UPPER EXTREMITY VENOUS DOPPLER ULTRASOUND HISTORY: Left arm pain for 2 days COMPARISON: None. TECHNIQUE: Grayscale, color and spectral Doppler imaging of the venous system of the left upper extre mity was performed. FINDINGS: Internal Jugular Vein: Normal grayscale appearance and flow. Subclavian Vein: Normal grayscale appearance and flow. Axillary Vein: Normal venous flow, compressibility and augmentation. Brachial vein: Normal venous flow, compressibility and augmentation. Radial vein: Normal venous flow, compressibility and augmentation. Ulnar vein: Normal venous flow, compressibility and augmentation. Additional Findings: None. IMPRESSION: 1. No sonographic evidence of deep venous thrombosis in the left upper extremity. Signer Name: Reed Patterson Jr, MD Signed: 04/29/2019 9:48 AM Workstation Name: [id number]
== END 2019-04-29 07:49 | disposition home or self-care (01) ==
LOC: VAS 07:48
PROVIDERS: ATTEND Emergency Medicine
DX: M79.602 Pain in left arm (principal)

== ENCOUNTER 2020-01-05 07:49 | Outpatient (CLI) | payer MEDICARE ==
--- NOTE | 2020-01-05 08:52 | Mammography Report ---
DIGITAL SCREENING MAMMOGRAM WITH CAD, 01/05/2020 INDICATION: Routine screening mammography. ROUTINE TECHNIQUE: Digital bilateral 2D mammography was obtained in the craniocaudal and mediolateral obliq ue projections. This examination was interpreted with the benefit of Computer-Aided Detection analysi s. COMPARISON: None available FINDINGS: Breast Density: The breasts are almost entirely fatty. There is no evidence of dominant mass, suspicious calcifications or architectural distortion in the l eft breast. In the right axillary region on MLO view only there is mild asymmetric density with quest ionable distortion. IMPRESSION: Questionable density with distortion in the right axillary region Follow up recommendation: Right spot compression views and ultrasound if needed BI-RADS Category 0: Incomplete. Needs additional imaging evaluation and/or prior mammograms for david rison. A "normal" or negative report should not discourage follow up or biopsy of a clinically significant f inding. A written summary of these findings will be mailed to the patient. The patient will be entered into a mammography reporting system which will generate a reminder letter for the patient's next appointmen t at the appropriate interval. The [employer] recommends yearly mammograms starting at age 40 and continuing as l dinh as a woman is in good health. Breast MRI is recommended for women with an approximate 20-25% or greater lifetime risk of breast cancer, including women with a strong family history of breast or ova marisa cancer or who have been treated for Hodgkin's disease. Signer Name: Kj Carr MD Signed: 01/05/2020 8:48 AM Workstation Name: [id number]
== END 2020-01-05 07:50 | disposition home or self-care (01) ==
LOC: MAMMO 07:49
PROVIDERS: ATTEND Internal Medicine
DX: Z12.31 Encounter for screening mammogram for malignant neoplasm of breast (principal); N64.89 Other specified disorders of breast
CPT/HCPCS: 77067

== ENCOUNTER 2020-01-20 07:42 | Outpatient (CLI) | payer MEDICARE ==
--- NOTE | 2020-01-20 08:59 | Mammography Report ---
DIGITAL DIAGNOSTIC MAMMOGRAM WITH CAD CONVENTIONAL, 01/20/2020 CLINICAL INFORMATION / INDICATION: Abnormal screening mammogram TECHNIQUE: Digital right mammographic imaging was performed. Spot compression views were obtained. This examination was interpreted with the benefit of Computer-aided Detection analysis. COMPARISON: Screening mammogram 01/05/2020 FINDINGS: Breast Density: The breasts are almost entirely fatty. No dominant mass, suspicious calcifications or architectural distortion in the right breast. The density in question in the right axillary region improves significantly with spot compression, ap pearance similar to the left. IMPRESSION: Resolution of concern Follow up recommendation: Routine yearly BI-RADS Category 1: Negative. A "normal" or negative report should not discourage follow up or biopsy of a clinically significant f inding. A written summary of these findings will be mailed to the patient. The patient will be entered into a mammography reporting system which will generate a reminder letter for the patient's next appointmen t at the appropriate interval. According to the [employer], yearly mammograms are recommended starting at age 40 and continuing as long as a woman is in good health. Breast MRI is recommended for women with an chasity roximately 20-25% or greater lifetime risk of breast cancer, including women with a strong family his tory of breast or ovarian cancer and women who have been treated for Hodgkin's disease. Signer Name: Kj Carr MD Signed: 01/20/2020 8:54 AM Workstation Name: [id number]
== END 2020-01-20 07:43 | disposition home or self-care (01) ==
LOC: MAMMO 07:42
PROVIDERS: ATTEND Internal Medicine
DX: R92.8 Other abnormal and inconclusive findings on diagnostic imaging of breast (principal)

== ENCOUNTER 2020-06-01 08:25 | Emergency (ER) | payer MEDICARE ==
--- NOTE | 2020-06-01 09:59 | Emergency Department Report ---
Upper Extremity - HPI Chief Complaint: Extremity Injury, Upper Stated Complaint: LEFT ARM AND SHOULDER PAIN Time Seen by Provider: 06/01/20 09:42 Upper Extremity: Right Shoulder Occurred When: 4 Days Symptoms: Yes Pain with Movement, Yes Numbness, Yes Swelling Other History: 49-year-old Nigerian presents to the emergency room complaining of right shoulder and neck pain for the last 3 to 4 days. Patient states she thinks she has a blood clot in her shoulder because it hurts. Patient reports she has a history of blood clots in a history of blood disorder factor III she thinks. Patient is currently on Xarelto and has been on it for the last 5 years. Patient states she has had a removal of a blood clot in that right arm. Patient denies any injury to her arm. She states that it sometimes gets numb. She denies any chest pain shortness of breathing. ED Review of Systems ROS: Stated complaint: LEFT ARM AND SHOULDER PAIN Other details as noted in HPI ED Past Medical Hx - Past Medical History Hx CVA: Yes (EYE IMPAIRMENT) Hx Diabetes: Yes Hx Psychiatric Treatment: Yes (BiPolar) Additional medical history: Blood clotting disorder - Surgical History Hx Open Heart Surgery: Yes ("remove blood clot, and mitral valve replacement") Additional Surgical History: R. arm surgery to remove blood clot - Social History Smoking Status: Current Every Day Smoker Substance Use Type: None - Medications Home Medications: Home Medications Medication Instructions Recorded Confirmed Last Taken Type Albuterol Mdi (or & Nicu Only) 2 puff IH QID PRN #1 inhalation 03/16/19 Unknown Rx [ProAir HFA Inhaler] Potassium Chloride [K-Dur] 20 meq PO QDAY #20 tablet 04/10/19 Unknown Rx glipiZIDE [Glucotrol] 5 mg PO QDAY #15 tablet 04/10/19 Unknown Rx Magnesium Oxide 400 mg PO QDAY #30 tablet 04/29/19 Unknown Rx Potassium Chloride [K-Dur] 20 meq PO BID #60 tab 04/29/19 Unknown Rx Upper Extremity Exam - Exam General: Vital signs noted. No distress. Alert and acting appropriately. Head and Torso: No HEENT Abnormality, No Neck Tenderness, No Chest/Lungs Abnormality, No Abdominal Tenderness, No Back Tenderness Shoulder Exam: Yes Normal Range of Motion in Shoulder, No Shoulder Tenderness, No Clavicle Tenderness, No Shoulder Deformity, No AC Joint Tenderness Arm Exam: No Arm/Humerus Tenderness, No Arm Deformity Elbow: No Elbow Tenderness, No Normal Range of Motion in Elbow, No Elbow Deformity Forearm: No Forearm Tenderness, No Forearm Deformity, No Pain with Pronation, No Pain with Supination Wrist: Yes Normal ROM in Wrist, No Wrist Tenderness, No Wrist Deformity, No Snuffbox Tenderness, No Pain with Axial Thumb Compression Hand: Yes Normal ROM in Digit(s), No Hand Tenderness, No Hand Deformity, No Digit Tenderness, No Digit(s) Deformity, No Tendon Dysfunction CMS Exam: No Broken Skin, No Normal Distal Pulses, No Normal Capillary Refill, No Normal Distal Sensation ED Course Vital Signs 06/01/20 08:33 Temperature 98.2 F Pulse Rate 75 Respiratory 18 Rate Blood Pressure 136/82 O2 Sat by Pulse 96 Oximetry ED Medical Decision Making - Lab Data Result diagrams: 06/01/20 09:52 06/01/20 09:52 - Radiology Data Radiology results: report reviewed [address] [address] XRay Report Signed Patient: GUNNAR RODRIGUEZ MR#: [id number] : 1970 Acct:[id number] Age/Sex: 49 / F ADM Date: 06/01/20 Loc: ED Attending Dr: Ordering Physician: CHAPITO FERREIRA Date of Service: 06/01/20 Procedure(s): XR shoulder 2+V RT Accession Number(s): [id number] cc: CHAPITO FERREIRA Fluoro Time In Minutes: RIGHT SHOULDER 3 VIEW INDICATION / CLINICAL INFORMATION: Right shoulder pain. COMPARISON: None available. FINDINGS: BONES/JOINT(S): No acute fracture or subluxation. No significant degenerative changes. SOFT TISSUES: No significant abnormality. ADDITIONAL FINDINGS: None. Signer Name: Cale Jamison MD Signed: 06/01/2020 10:12 AM Workstation Name: [email or web address] Transcribed By: ALINA Dictated By: Cale Jamison MD Electronically Authenticated By: Cale Jamison MD Signed Date/Time: 06/01/20 1012 DD/ 1012 TD/TT: [address] [address] Vascular Lab Report Signed Patient: GUNNAR RODRIGUEZ MR#: [id number] : 1970 Acct:[id number] Age/Sex: 49 / F ADM Date: 06/01/20 Loc: ED Attending Dr: Ordering Physician: CHAPITO FERREIRA Date of Service: 06/01/20 Procedure(s): VL venous duplex UE RT Accession Number(s): [id number] cc: CHAPITO FERREIRA DUPLEX DOPPLER UPPER EXTREMITY VENOUS, RIGHT INDICATION / CLINICAL INFORMATION: Right shoulder pain and swelling, previous history of DVT. TECHNIQUE: Duplex doppler imaging was performed through the veins of the right upper extremity using venous compression and other maneuvers. COMPARISON: None available. FINDINGS: RIGHT INTERNAL JUGULAR VEIN: Negative. RIGHT SUBCLAVIAN VEIN: Negative. RIGHT AXILLARY VEIN: Negative. RIGHT BRACHIAL VEIN: Negative. RIGHT FOREARM VEINS: Negative. RIGHT BASILIC VEIN (SUPERFICIAL): Negative. ADDITIONAL FINDINGS: None. IMPRESSION: 1. No sonographic evidence for DVT. Signer Name: Cale Jamison MD Signed: 06/01/2020 11:20 AM Workstation Name: [email or web address] Transcribed By: ALINA Dictated By: Cale Jamison MD Electronically Authenticated By: Cale Jamison MD Signed Date/Time: 06/01/20 112 DD/ 19 TD/TT: Print Cancel - Medical Decision Making 49-year-old Nigerian presents to the emergency room complaining of right shoulder and neck pain for the last 3 to 4 days. Patient states she thinks she has a blood clot in her shoulder because it hurts. Patient reports she has a history of blood clots in a history of blood disorder factor III she thinks. Patient is currently on Xarelto and has been on it for the last 5 years. Patient states she has had a removal of a blood clot in that right arm. Patient denies any injury to her arm. She states that it sometimes gets numb. She denies any chest pain shortness of breathing. CBC CMP PT PTT venous Doppler right upper extremity and x-ray of right shoulder. Critical care attestation.: If time is entered above; I have spent that time in minutes in the direct care of this critically ill patient, excluding procedure time. ED Disposition Clinical Impression: Right upper limb pain, Right anterior shoulder pain Disposition: DC-01 TO HOME OR SELFCARE Is pt being admited?: No Does the pt Need Aspirin: No Condition: Stable Instructions: Shoulder Pain, [id number] Additional Instructions: Venous Doppler of your right upper arm is negative for any DVT, x-ray of your right shoulder is negative for any fractures dislocation. Labs are within normal limits. I recommend taking your pain medication as needed and follow-up with your primary care provider. Referrals: BRANDON KIMBLE MD [Primary Care Provider] - 3-5 Days Forms: Work/School Release Form(ED)
--- NOTE | 2020-06-01 10:16 | XRay Report ---
RIGHT SHOULDER 3 VIEW INDICATION / CLINICAL INFORMATION: Right shoulder pain. COMPARISON: None available. FINDINGS: BONES/JOINT(S): No acute fracture or subluxation. No significant degenerative changes. SOFT TISSUES: No significant abnormality. ADDITIONAL FINDINGS: None. Signer Name: Cale Jamison MD Signed: 06/01/2020 10:12 AM Workstation Name: [email or web address]
[2020-06-01 10:30] LABS: Basophils % (Auto) 0.4 % (0.0-1.8); Eosinophils # (Auto) 0.3 K/mm3 (0.0-0.4); Eosinophils % (Auto) 2.8 % (0.0-4.3); Hematocrit 41.5 % (30.3-42.9); Hemoglobin 14.5 gm/dl (10.1-14.3); Lymphocytes # (Auto) 2.6 K/mm3 (1.2-5.4); Lymphocytes % (Auto) 25.6 % (13.4-35.0); Mean Corpuscular HGB Conc 35 % (30-34); Mean Corpuscular Volume 90 fl (79-97); Monocytes # (Auto) 0.8 K/mm3 (0.0-0.8); Monocytes % (Auto) 7.5 % (0.0-7.3); Platelet Count 252 K/mm3 (140-440); Red Blood Count 4.63 M/mm3 (3.65-5.03)
[2020-06-01 10:44] LABS: INR 2.07 (0.87-1.13)
[2020-06-01 10:46] LABS: Alanine Aminotransferase 26 units/L (7-56); Albumin 4.1 g/dL (3.9-5); Blood Urea Nitrogen 13 mg/dL (7-17); Calcium 9.6 mg/dL (8.4-10.2); Hemolysis Index 16
[2020-06-01 10:57] LABS: BUN/Creatinine Ratio 22
--- NOTE | 2020-06-01 11:25 | Vascular Lab Report ---
DUPLEX DOPPLER UPPER EXTREMITY VENOUS, RIGHT INDICATION / CLINICAL INFORMATION: Right shoulder pain and swelling, previous history of DVT. TECHNIQUE: Duplex doppler imaging was performed through the veins of the right upper extremity using venous comp ression and other maneuvers. COMPARISON: None available. FINDINGS: RIGHT INTERNAL JUGULAR VEIN: Negative. RIGHT SUBCLAVIAN VEIN: Negative. RIGHT AXILLARY VEIN: Negative. RIGHT BRACHIAL VEIN: Negative. RIGHT FOREARM VEINS: Negative. RIGHT BASILIC VEIN (SUPERFICIAL): Negative. ADDITIONAL FINDINGS: None. IMPRESSION: 1. No sonographic evidence for DVT. Signer Name: Cale Jamison MD Signed: 06/01/2020 11:20 AM Workstation Name: [id number]
[2020-06-01 11:49] VITALS: BP 139/90
== END 2020-06-01 11:51 | disposition home or self-care (01) ==
LOC: ED 08:25
DX: M25.511 Pain in right shoulder (principal); M79.601 Pain in right arm; M54.2 Cervicalgia; E11.9 Type 2 diabetes mellitus without complications; F31.9 Bipolar disorder, unspecified; F17.200 Nicotine dependence, unspecified, uncomplicated; Z98.890 Other specified postprocedural states; Z86.73 Personal history of transient ischemic attack (TIA), and cerebral infarction without residual deficits; Z79.899 Other long term (current) drug therapy; Z88.8 Allergy status to other drugs, medicaments and biological substances
CPT/HCPCS: 36415; 80053; 85025; 85610; 85730

== ENCOUNTER 2021-03-07 16:48 | Emergency (ER) | payer MEDICARE ==
[2021-03-07] MEDS ORDERED: LIDOCAINE (2%) 20 MG/1 ML VIAL 20 ML MDV INFILTRATI STA (21:22)
--- NOTE | 2021-03-08 00:53 | Emergency Department Report ---
ED Laceration HPI - HPI Chief Complaint: Laceration/Recheck/Suture Stated Complaint: LEFT INDEX FINGER LAC Time Seen by Provider: 03/07/21 21:20 Occurred When: Today Location: Upper Extremity Severity: moderate Tetanus Status: Up to Date Laceration Symptoms: Yes Pain (Dull throbbing pain 6 out of 10), No Foreign Body Sensation, No Numbness, No Weakness Other History: 50-year-old female [facility] emerge department complaining of laceration to left index finger from a knife which occurred around 3:00 today. Bleeding continued as she takes Xarelto so she presents emergency department seeking treatment of her wound ED Review of Systems ROS: Stated complaint: LEFT INDEX FINGER LAC Other details as noted in HPI Comment: All other systems reviewed and negative ED Past Medical Hx - Past Medical History Hx CVA: Yes (EYE IMPAIRMENT) Hx Diabetes: Yes Hx Psychiatric Treatment: Yes ([employer]) Additional medical history: Blood clotting disorder - Surgical History Hx Open Heart Surgery: Yes ("remove blood clot, and mitral valve replacement") Additional Surgical History: R. arm surgery to remove blood clot - Social History Smoking Status: Current Every Day Smoker Substance Use Type: None - Medications Home Medications: Home Medications Medication Instructions Recorded Confirmed Last Taken Type Albuterol Mdi (or & Nicu Only) 2 puff IH QID PRN #1 inhalation 03/16/19 Unknown Rx [ProAir HFA Inhaler] Potassium Chloride [K-Dur] 20 meq PO QDAY #20 tablet 04/10/19 Unknown Rx glipiZIDE [Glucotrol] 5 mg PO QDAY #15 tablet 04/10/19 Unknown Rx Magnesium Oxide 400 mg PO QDAY #30 tablet 04/29/19 Unknown Rx Potassium Chloride [K-Dur] 20 meq PO BID #60 tab 04/29/19 Unknown Rx Chlorhexidine Gluconate [Hibiclens] 5 ml TP BID #240 liquid 03/08/21 Unknown Rx cephALEXin [Keflex] 500 mg PO Q8HR #21 cap 03/08/21 Unknown Rx Laceration Physical Exam - Exam General: Vital signs noted. No distress. Alert and acting appropriately. Wound Length (cm): 2 Laceration Location: Upper Extremity Full Body Front + Back: 1 - Left index finger has irregular laceration to the ventral Laceration Exam: Yes Normal Distal CMS, No Foreign Body, No Exposed Tendon, Vessel, or Nerve, No Tendon Injury ED Course Vital Signs 03/07/21 16:52 Temperature 97.6 F Pulse Rate 74 Respiratory 16 Rate Blood Pressure 137/90 O2 Sat by Pulse 96 Oximetry - Laceration /Wound Repair Left Finger Wound's Depth, Shape: irregular Wound Explored: clean Irrigated w/ Saline (ccs): 25 Anesthesia: 1% Lidocaine Volume Anesthetic (ccs): 2 Wound Repaired With: sutures Suture Size/Type: 5:0 Number of Sutures: 5 Sterile Dressing Applied?: Yes ED Medical Decision Making - Medical Decision Making 50-year-old female who is anticoagulated with Xarelto status post laceration with a knife to her finger with her tetanus shot up-to-date she was treated appropriately in the emergency department with sutures Consalvo hemostasis was achieved with no complications. She was placed in a sterile bandage Critical care attestation.: If time is entered above; I have spent that time in minutes in the direct care of this critically ill patient, excluding procedure time. ED Disposition Clinical Impression: Laceration of left index finger Disposition: HOME / SELF CARE / HOMELESS Is pt being admited?: No Does the pt Need Aspirin: No Condition: Stable Instructions: Laceration Care, Adult, Sutures, Asif, or Adhesive Wound Closure, [id number], Sutured Wound Care, [id number] Prescriptions: Chlorhexidine Gluconate [Hibiclens] 5 ml TP BID #240 liquid cephALEXin [Keflex] 500 mg PO Q8HR #21 cap Referrals: BRANDON KIMBLE MD [Primary Care Provider] - 3-5 Days
[2021-03-08 01:04] VITALS: BP 132/75
== END 2021-03-08 01:04 | disposition home or self-care (01) ==
LOC: ED 16:48
DX: S61.211A Laceration without foreign body of left index finger without damage to nail, initial encounter (principal); E11.9 Type 2 diabetes mellitus without complications; F31.9 Bipolar disorder, unspecified; F17.200 Nicotine dependence, unspecified, uncomplicated; Z88.6 Allergy status to analgesic agent; Z88.8 Allergy status to other drugs, medicaments and biological substances; Z79.899 Other long term (current) drug therapy; W26.0XXA Contact with knife, initial encounter; Y93.89 Activity, other specified; Y92.89 Other specified places as the place of occurrence of the external cause; Y99.8 Other external cause status
CPT/HCPCS: 12001; 99282; J3490